=== PATIENT | male | born 1985 | race African-American/Black ===

== ENCOUNTER 2020-04-28 09:36 | Outpatient (REF) | payer OTHER, SELFPAY | END 2020-04-28 09:37 | disposition home or self-care (01) | LOC: HO.HMGCLDS 09:36 | PROVIDERS: PCP Nurse Practitioner Family; Visit Provider Internal Medicine | DX: Z20.828 Contact with and (suspected) exposure to other viral communicable diseases (principal) | CPT/HCPCS: C9803; U0003 ==

== ENCOUNTER 2020-07-21 14:28 | Outpatient (REF) | payer OTHER, SELFPAY | END 2020-07-21 14:29 | disposition home or self-care (01) | LOC: HO.HMGCLDS 14:28 | PROVIDERS: PCP Nurse Practitioner Family; Visit Provider Internal Medicine | DX: Z20.822 Contact with and (suspected) exposure to COVID-19 (principal) | CPT/HCPCS: 36415; C9803; U0003; U0005 ==

== ENCOUNTER 2021-11-11 11:20 | Outpatient (REF) | payer OTHER, SELFPAY ==
[2021-11-11 13:19] LABS: CT PCR NOT DETECTED (Not Detect.); NG PCR NOT DETECTED (Not Detect.)
== END 2021-11-11 11:21 | disposition home or self-care (01) ==
LOC: HO.LNP 11:20
PROVIDERS: Visit Provider Internal Medicine
DX: Z11.3 Encounter for screening for infections with a predominantly sexual mode of transmission (principal); M54.6 Pain in thoracic spine
CPT/HCPCS: 87491; 87591

== ENCOUNTER 2024-10-02 09:54 | Outpatient (AMB) | payer BC, SELFPAY ==
--- NOTE | 2024-10-02 09:59 | MHC.OFFWIV ---
Intake Vital Signs 10/02/24 10:02 Height 6 ft 2 in Weight 170 lb BMI 21.8 BP 112/70 Blood Pressure Location Lt brachial Position Sitting Pulse 88 Pulse Source Pulse Oximeter Pulse Oximetry (%) 99 Oxygen Delivery Method Room Air Intake Visit Reasons: EP-rt foot big toe Intake Note: Patient here for right big toe swelling and pain that has been present for about 3 days. Patient Tobacco Use Status: Never used Tobacco Allergies azithromycin [Zithromax] Adverse Reaction (Unknown, Verified 10/02/24 10:02) GI upset Do you need a note to return to daycare/school/sports/work: Yes HPI HPI Comments History of Present Illness Details History of Present Illness - The patient is a 39-year-old male presenting with right great toe pain. - He sustained a toe fracture about six months prior, which has fully resolved. - Recent symptoms include a throbbing pain that started two days ago, accompanied by previous swelling and tenderness. - The patient has not experienced any recent major injuries, though he did bump the affected area. - Says the joint was red and swollen yesterday and very tender. - He reports dietary patterns that include foods,specifically he eats a lot of steak, potentially elevating uric acid levels. - Currently experiencing a limping gait due to persistent discomfort and inability to bend the affected toe properly. 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 - denies known history of gout Physical Exam General: Cooperative, healthy appearing, comfortable, no acute distress and well developed Orientation: Patient oriented x3 Limitations: Walking with a limp due to right foot pain Head: Normal to inspection Ears: Hearing grossly normal bilaterally Nose: Normal External nose present Face and sinus: Normal facial exam Eyes: Appearance normal, both eyes and all related structures Neck: Normal visual inspection and Yes full ROM Respiratory: Normal respiratory effort and able to speak in complete sentences. Skin: No rashes or lesions noted Neuro: Patient oriented x3 Extremities: RLE: 1st MTP TTP, mild edema, no erythema, the remainder of the foot is not tender to palpation, no skin changes or edema or erythema, full range of motion for the remainder of the foot and ankle PFSH Surgical History History of appendectomy Family History Father PTSD (post-traumatic stress disorder) Depression Anxiety Mother No problems noted. Maternal Grandmother Lung cancer Paternal Grandmother Emphysema, unspecified Brother No problems noted. Brother No problems noted. Sister No problems noted. Sister No problems noted. Son No problems noted. Social History Patient Tobacco Use Status: Never used Tobacco Review of Systems Const All systems reviewed & are unremarkable except as noted in HPI and below Physical Exam Vital Signs: Last Vital Signs Pulse 88 10/02/24 10:02 BP 112/70 10/02/24 10:02 Pulse Ox 99 10/02/24 10:02 Oxygen Delivery Method Room Air 10/02/24 10:02 BMI result Body Mass Index 21.8 Assessment & Plan Assessment & Plan (1) Gout: Code(s): M10.9 - Gout, unspecified Qualifiers: Chronicity: acute Encounter type: initial encounter Gout site: toe Laterality: right Plan: The plan includes initiating a short course of prednisone at 40 mg daily to decrease inflammation and control symptoms of gout, while recommending dietary adjustments to reduce uric acid levels. An x-ray is ordered to confirm the absence of any new toe fractures, we agreed patient would hold off on getting the x-ray and only get it if his pain does not improve after starting the prednisone. The patient should start taking prednisone in the morning to avoid sleep disturbances. The patient understands the treatment plan and potential medication side effects. Patient was informed and verbally consented to the use of an ambient scribe for clinic note documentation during this visit. Orders: Orders XR foot RT min 3V Today M79.674 - Pain in right toe(s) Medications: New prednisone 40 mg (2 x 20 mg) PO QAM 10 tabs 0RF Coding Level of Care Code Est Pt Level 3 (37138) Diagnoses Gout M10.9 Chronicity: acute Encounter type: initial encounter Gout site: toe Laterality: right
[2024-10-02 10:02] VITALS: BP 112/70; PULSE 88; O2SAT 99; BMI 21.8
== END 2024-10-02 10:25 | disposition home or self-care (01) ==
PROVIDERS: PCP Nurse Practitioner Family; Visit Provider Physician Assistant
DX: M10.9 Gout, unspecified (principal)

== ENCOUNTER → 2024-10-02 09:54 | Outpatient (BNVA) | payer BC, SELFPAY | PROVIDERS: PCP Nurse Practitioner Family; Visit Provider Physician Assistant | DX: Z13.89 Encounter for screening for other disorder (principal) ==

== ENCOUNTER 2024-10-17 12:39 | Outpatient (AMB) | payer BC, SELFPAY ==
--- NOTE | 2024-10-17 13:34 | AM.OFFWIN_ITS ---
Intake Vital Signs 10/17/24 13:43 Weight 171 lb BP 108/70 Blood Pressure Location Lt brachial Position Sitting Pulse 70 Pulse Source Pulse Oximeter Pulse Oximetry (%) 99 Oxygen Delivery Method Room Air Intake Visit Reasons: EP STD testing Intake Note: Patient here for STD check as he was exposed to Trich. Patient Tobacco Use Status: Never used Tobacco Allergies azithromycin [Zithromax] Adverse Reaction (Unknown, Verified 10/17/24 13:44) GI upset Do you need a note to return to daycare/school/sports/work: Yes HPI HPI Comments History of Present Illness Details History of Present Illness - The patient is a 39-year-old male pres enting with suspected trichomoniasis infection. - He reports a recent notification from a female who is not his partner who tested positive for trichomoniasis, prompting his concern. - The patient is asymptomatic for typica l symptoms related to the infection, such as pain during urination, ejaculation, or abnormal discharge. - He has communicated the situation to h is partner. - There's a concern for a psychological component related to the sensation of dripping, though no physical symptoms are evident. Physical Exam General: Cooperative, healthy appearing, comfortable, no acute distress and well developed Orientation: Patient oriented x3 Limitations: No limitations Head: Normal to inspection Ears: Hearing grossly normal bilaterally Nose: Normal External nose present Face and sinus: Normal facial exam Eyes: Appearance normal, both eyes and all related structures Neck: Normal visual inspection and Yes full ROM Respiratory: Normal respiratory effort and able to speak in complete sentences. Skin: No rashes or lesions noted Neuro: Patient oriented x3 Extremities: Normal to inspection [facility] History of appendectomy Family History Father PTSD (post-traumatic stress disorder) Depression Anxiety Mother No problems noted. Maternal Grandmother Lung cancer Paternal Grandmother Emphysema, unspecified Brother No problems noted. Brother No problems noted. Sister No problems noted. Sister No problems noted. Son No problems noted. Social History Patient Tobacco Use Status: Never used Tobacco Review of Systems Const All systems reviewed & are unremarkable except as noted in HPI and below Physical Exam Vital Signs: Last Vital Signs Pulse 70 10/17/24 13:43 BP 108/70 10/17/24 13:43 Pulse Ox 99 10/17/24 13:43 Oxygen Delivery Method Room Air 10/17/24 13:43 Assessment & Plan Assessment & Plan (1) Exposure to STD: Code(s): Z20.2 - Contact with and (suspected) exposure to infections with a predominantly sexual mode of transmission Plan: Plan The patient will undergo urine testing for suspected trichomoniasis. Patient preferred to be treated up front with 2g metronidazole as a single dose. The treatment will involve taking four 500 mg tablets during one sitting. The patient is instructed to report any adverse reactions and to ensure both he and his partner are free from infection before resuming sexual activity. Will send gonorrhea and chlamydia as well to be thorough. Patient was informed and verbally consented to the use of an ambient scribe for clinic note documentation during this visit. Orders: Orders Trichomonas vag. RNA Ur Male Today Z20.2 - Contact with and (suspected) exposure to infections with a predominantly sexual mode of transmission CT NG by PCR Today Z20.2 - Contact with and (suspected) exposure to infections with a predominantly sexual mode of transmission Medications: New metronidazole 2,000 mg (4 x 500 mg) PO ONCE 4 tabs 0RF Coding Level of Care Code Est Pt Level 3 (30796) Diagnoses Exposure to STD Z20.2
[2024-10-17 13:43] VITALS: BP 108/70; PULSE 70; O2SAT 99
== END 2024-10-17 14:03 | disposition home or self-care (01) ==
PROVIDERS: PCP Nurse Practitioner Family; Visit Provider Physician Assistant
DX: Z20.2 Contact with and (suspected) exposure to infections with a predominantly sexual mode of transmission (principal)

== ENCOUNTER 2024-10-17 12:39 | Outpatient (REF) | payer BC, SELFPAY ==
[2024-10-18 15:30] LABS: CT PCR NOT DETECTED (Not Detect.); NG PCR NOT DETECTED (Not Detect.)
== END 2024-10-17 12:40 | disposition home or self-care (01) ==
LOC: HO.LAB 12:39
PROVIDERS: Physician Assistant; PCP Nurse Practitioner Family
DX: Z20.2 Contact with and (suspected) exposure to infections with a predominantly sexual mode of transmission (principal)
CPT/HCPCS: 87491; 87591